=== PATIENT | male | born 1980 | race Hispanic/Latino ===

== ENCOUNTER 2017-07-29 15:46 | Emergency (ER) | payer SELFPAY ==
[~2017-07-29] VITALS: Ht 157.5 cm; Wt 62.0 kg
[2017-07-29] MEDS ORDERED: MOTRIN800 MG PO (16:06)
[2017-07-29 16:08] VITALS: BP 148/88
== END 2017-07-29 16:12 | disposition home or self-care (01) | DRG 74 ==
LOC: ED 15:46
DX: G62.9 Polyneuropathy, unspecified (principal)